=== PATIENT | female | born 1945 | race Caucasian/White ===

== ENCOUNTER → 2017-06-08 | Outpatient (CLI) | payer MEDICARE, BC | END | disposition home or self-care (01) | LOC: PCVCIMAG 12:48 | DX: I10 Essential (primary) hypertension (principal); E78.5 Hyperlipidemia, unspecified; J44.9 Chronic obstructive pulmonary disease, unspecified; C50.211 Malignant neoplasm of upper-inner quadrant of right female breast; Z87.891 Personal history of nicotine dependence; Z79.899 Other long term (current) drug therapy | CPT/HCPCS: 80061; 93005; 93306; G0463 ==

== ENCOUNTER → 2017-12-19 | Outpatient (CLI) | payer MEDICARE, BC | END | disposition home or self-care (01) | LOC: PCVCCLINIC 14:42 | PROVIDERS: ATTEND Internal Medicine | DX: I10 Essential (primary) hypertension (principal); E78.5 Hyperlipidemia, unspecified; J44.9 Chronic obstructive pulmonary disease, unspecified; C50.211 Malignant neoplasm of upper-inner quadrant of right female breast; Z88.8 Allergy status to other drugs, medicaments and biological substances; Z79.899 Other long term (current) drug therapy; Z87.891 Personal history of nicotine dependence | CPT/HCPCS: 80061; 93005; G0463 ==

== ENCOUNTER → 2018-06-28 | Outpatient (CLI) | payer MEDICARE, BC | END | disposition home or self-care (01) | LOC: PCVCCLINIC 14:21 | PROVIDERS: ATTEND Internal Medicine | DX: I11.0 Hypertensive heart disease with heart failure (principal); I50.32 Chronic diastolic (congestive) heart failure; E78.5 Hyperlipidemia, unspecified; J44.9 Chronic obstructive pulmonary disease, unspecified; C50.211 Malignant neoplasm of upper-inner quadrant of right female breast; Z87.891 Personal history of nicotine dependence | CPT/HCPCS: 36415; 80061; 93005; G0463 ==

== ENCOUNTER → 2018-08-14 | Outpatient (CLI) | payer MEDICARE, BC ==
--- NOTE | 2018-08-14 12:36 | PCVCIMAG ---
APPROVED REPORT Study performed: 08/14/2018 11:07:01 EXAM: Comprehensive 2D, Doppler, and color-flow Echocardiogram Patient Location: Echo lab Room #: 3Status: routine BSA: 1.50 HR: 79 bpmBP: 132/70 mmHg Rhythm: NSR Other Information Study Quality: Adequate Risk Factors: Cardiac Risk Factors: HTN, Hyperlipidemia Indications COPD Dyspnea on Exertion 2D Dimensions IVSd: 9.78 (7-11mm)LVOT Diam: 18.00 (18-24mm) LVDd: 27.76 mm PWd: 10.39 (7-11mm)Ascending Ao: 25.42 (22-36mm) LVDs: 18.12 (25-40mm) Left Atrium: 25.75 (27-40mm) Aortic Root: 32.32 mm LV Single Plane 4CH: 70.98 % LV Single Plane 2CH: 67.29 % Biplane EF: 69.3 % Volumes Left Atrial Volume (Systole) Single Plane 4CH: 17.06 mLSingle Plane 2CH: 26.80 mL LA ESV Index: 16.00 mL/m2 Aortic Valve AoV Peak Gui.: 1.31 m/s AO Peak Gr.: 6.91 mmHgLVOT Max P.78 mmHg LVOT Max V: 1.09 m/s ZECHARIAH Vmax: 2.07 cm2 Mitral Valve E/A Ratio: 0.6 MV Decel. Time: 262.45 ms MV E Max Gui.: 0.51 m/s MV A Gui.: 0.88 m/s IVRT: 58.82 ms TDI E/Lateral E': 6.38E/Medial E': 6.38 Medial E' Gui.: 0.08 m/s Lateral E' Gui.: 0.08 m/s Pulmonary Valve PV Peak Gui.: 0.88 m/sPV Peak Gr.: 3.07 mmHg Pulmonary Vein P Vein S: 0.76 m/sP Vein A: 0.73 m/s P Vein D: 0.42 m/sP Vein A Dur.: 90.0 msec P Vein S/D Ratio: 1.81 Tricuspid Valve TR Peak Gui.: 2.83 m/sRAP Estimate: 7.00 mmHg TR Peak Gr.: 32.05 mmHg PA Pressure: 39.00 mmHg Left Ventricle The left ventricle is normal size. There is normal LV segmental wall motion. There is normal left ventricular wall thickness. Left ventricular systolic function is normal. The left ventricular ejection fraction is within the normal range. LVEF is 65-70%. Mild diastolic dysfunction Right Ventricle The right ventricle is normal size. The right ventricular systolic function is normal. Atria The left atrium size is normal. The right atrium size is normal. Aortic Valve The aortic valve is normal in structure. No aortic regurgitation is present. There is no aortic valvular stenosis. Mitral Valve The mitral valve is normal in structure. There is no mitral valve regurgitation noted. No evidence of mitral valve stenosis. Tricuspid Valve The tricuspid valve is normal in structure. Trace tricuspid regurgitation. The pulmonary artery pressure is 39 mmHg. Pulmonic Valve The pulmonary valve is normal in structure. Mild pulmonic regurgitation. Great Vessels The aortic root is normal in size. IVC is normal in size and collapses >50% with inspiration. Pericardium There is no pericardial effusion. <Conclusion> Left ventricular systolic function is normal. There is normal LV segmental wall motion. LVEF is 65-70%. Mild diastolic dysfunction The aortic valve is normal in structure. No aortic regurgitation or stenosis The mitral valve is normal in structure. No mitral valve regurgitation. Trace tricuspid regurgitation. The pulmonary artery pressure of 39 mmHg. There is no pericardial effusion.
== END | disposition home or self-care (01) ==
LOC: PCVCIMAG 11:00
PROVIDERS: ATTEND Internal Medicine
DX: R06.09 Other forms of dyspnea (principal); J44.9 Chronic obstructive pulmonary disease, unspecified; I10 Essential (primary) hypertension; E78.5 Hyperlipidemia, unspecified
CPT/HCPCS: 93306

== ENCOUNTER → 2019-01-02 | Outpatient (CLI) | payer MEDICARE, BC | LOC: PCVCCLINIC 15:50 | PROVIDERS: ATTEND Internal Medicine | DX: I11.0 Hypertensive heart disease with heart failure (principal); I50.32 Chronic diastolic (congestive) heart failure; E78.5 Hyperlipidemia, unspecified; J44.9 Chronic obstructive pulmonary disease, unspecified; C50.211 Malignant neoplasm of upper-inner quadrant of right female breast; R63.4 Abnormal weight loss; Z17.0 Estrogen receptor positive status [ER+]; Z88.1 Allergy status to other antibiotic agents | CPT/HCPCS: 36415; 93005; G0463 ==